=== PATIENT | male | born 1965 | race Caucasian/White ===

== ENCOUNTER → 2021-09-28 11:40 | Outpatient (CLI) | payer OTHER, SELFPAY ==
--- NOTE | ~2021-09-28 | CT_ITS ---
EXAMINATION: CT lung screening DATE: 09/28/2021 12:04 INDICATION: Nicotine dependence, cigarettes, in remission TECHNIQUE: Computed tomography (CT) of the chest was performed without intravenous contrast. Addition al 3D reconstructions utilizing coronal maximum intensity projection (MIP) were performed. Automated exposure control and iterative reconstruction technique were employed. The dose-length product was 12 3.26 mGy-cm. COMPARISON: None FINDINGS: Mild emphysema. Small calcified nodule at the anterior left upper lobe and at the basilar right lower lobe along with calcified mediastinal lymph nodes consistent with old granulomatous disease. No othe r pulmonary nodules, pneumonia, pulmonary edema or pleural effusion. Heart size is normal. Atheroscle rotic coronary artery disease with likely stenting along the right coronary artery. Thoracic aorta is normal in caliber. No pathologically enlarged abdominal or pelvic lymphadenopathy. Moderate lower ce rvical spondylosis. IMPRESSION: 1. Lung-RADS category 1: Negative. Continue annual screening with noncontrast low-dose chest CT in 12 months. Reviewed, dictated and finalized at location A. S ENABLEMENT MANAGER IMPRESSION: 1. Lung-RADS category 1: Negative. Continue annual screening with noncontrast l ow-dose chest CT in 12 months.
== END ==
PROVIDERS: PCP Family Medicine; Visit Provider Family Medicine
DX: F17.211 Nicotine dependence, cigarettes, in remission (principal)
CPT/HCPCS: 71271

== ENCOUNTER 2023-04-03 10:51 | Emergency (ER) | payer OTHER, SELFPAY ==
--- NOTE | ~2023-04-03 | XR_ITS ---
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 COMPARISON: None available FINDINGS: Bone alignment is normal. There is no fracture. There is swelling and possible soft tissue gas of the hand near the fourth and fifth metacarpals. 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 IMPRESSION: 1. Soft tissue swelling and possible gas of the hand near the fourth and fifth metacarpals without ac cliff osseous abnormality. Reviewed, dictated and finalized at location A. IMPRESSION: 1. Soft tissue swelling and possible gas of the hand near the fourth and fifth metacarpals without acute osseous abnormality.
[2023-04-03 11:01] VITALS: BP 124/61; PULSE 60; RESP 18; TEMP 36.5; O2SAT 97
--- NOTE | 2023-04-03 11:32 | ED.SKABFB ---
HPI - Skin/Abscess/Foreign Bdy General Chief complaint: Extremity Injury, Upper Stated complaint: Lt Hand Injury Time Seen by Provider: 04/03/23 11:05 Source: patient Mode of arrival: ambulatory Limitations: no limitations History of Present Illness HPI narrative: Yung is a 57-year-old male patient presenting to the clinic today with complaints of puncture wound injury to the left hand. 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 Tetanus shot unknown. Bleeding controlled Related Data Home Medications Medication Instructions Recorded Confirmed carvedilol 3.125 mg tablet mg 04/03/23 04/03/23 clopidogrel 75 mg tablet mg 04/03/23 lisinopril 2.5 mg tablet mg 04/03/23 Allergies Allergy/AdvReac Type Severity Reaction Status Date / Time hydrocodone AdvReac Nausea Verified 04/03/23 11:30 Review of Systems Review of Systems: Pertinent positives per HPI. Patient denies any fever, chills, rash, headache, visual changes, dizziness, cough, runny nose, sore throat, shortness of breath, chest pain, palpitations, nausea, vomiting, diarrhea, constipation, abdominal pain, or any urinary issues. PMFSH Comments At the time of my signature, I reviewed and agree with the nursing past medical, surgical, social, and family history. There is no relevant family history pertinent to the patient complaint. Exam Narrative: General: Well-developed, well nourished, in no apparent distress Head: Normocephalic, atraumatic. Cardio: Regular rate and rhythm, s1 and s2 normal, no murmur appreciated. Resp: Clear to auscultation bilaterally, no rhonchi, rales, wheezing or rubs. Integumentary: [place], warm, and dry, 0.25 cm puncture wound to the left lateral palm of the hand with soft tissue swelling and tenderness to palpation. No subcutaneous emphysema palpable Course Course Emergency Course: Portions of this record may have been created with voice recognition software. Level of Care: Express Care Visit Vital Signs Vital signs: Vital Signs Temperature 36.5 C 04/03/23 11:01 Pulse Rate 60 04/03/23 11:01 Respiratory Rate 18 04/03/23 11:01 Blood Pressure 124/61 04/03/23 11:01 Pulse Oximetry 97 04/03/23 11:01 Oxygen Delivery Room Air 04/03/23 11:01 Temperature 36.5 C 04/03/23 11:01 Pulse Rate 60 04/03/23 11:01 Respiratory Rate 18 04/03/23 11:01 Blood Pressure 124/61 04/03/23 11:01 Pulse Oximetry 97 04/03/23 11:01 Oxygen Delivery Room Air 04/03/23 11:01 Vital signs reviewed MDM - Skin/Abscess/Foreign Bdy MDM Narrative Medical decision making narrative: At the time of visit patient is resting comfortably on the exam table. X-ray was negative for any sign of fracture or malalignment however there is some gas and soft tissue swelling to the left lateral palm. Will place patient on Keflex. Do not advise for laceration closure at this time. Supportive measures were discussed with the patient he voiced understanding discharge instructions agrees to treatment plan. Tetanus shot was updated Differential Diagnosis Differential diagnosis: Likely abscess of skin or subcutaneous tissue, cellulitis and other (Puncture wound, laceration) Imaging Data Radiologist's impression: Close Hand X-Ray (Signed) Krishna Sapp - 04/03/23 Launch?[facility] [place] [address] XRay Report Signed Patient: Yung Newsome : 1965 MR#: [id number] Age/Sex: 57 / M Acct:[id number] Loc: [facility]? ? 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 COMPARISON: None available
[2023-04-03] MEDS: TETANUS,DIPHTHERIA,AC PERTUSSIS ADULT (0.5 ML) BOOSTRIX IM (11:39)
== END 2023-04-03 11:46 | disposition home or self-care (01) ==
PROVIDERS: Emergency Provider Nurse Practitioner Family; PCP Family Medicine
DX: S61.432A Puncture wound without foreign body of left hand, initial encounter (principal); X58.XXXA Exposure to other specified factors, initial encounter; Z23 Encounter for immunization; I10 Essential (primary) hypertension; I25.10 Atherosclerotic heart disease of native coronary artery without angina pectoris; I25.2 Old myocardial infarction; Z95.5 Presence of coronary angioplasty implant and graft
CPT/HCPCS: 73130; 90471; 90715; 99213; G0463